=== PATIENT | female | born 1935 | race Caucasian/White ===

== ENCOUNTER → 2017-10-12 | Outpatient (CLI) | payer MEDICARE, OTHER ==
[~2017-10-12] MED LIST: ASPIRIN 81M81 MG/TA2 PO; BIOTIN5 MG PO; CLARITIN 1010 MG/TAB PO; COZAAR100 MG PO; CROLOM 10 ML10 ML OP; FLEXERIL5 MG PO; HCTZ12.5TAB PO; LASIX 40MG TABL40 MG PO; LIPITOR 10MG10 MG PO; LUTEIN20 MG PO; MULTIPLE VITAMI1 CAP PO; NORVASC 10MG10 MG PO; OSTEO-BI-FLEX 21 TAB PO; PAXIL 10MG10 MG PO; PERCOCET 325 MG1 TA2 PO; PHENTERMINE15 MG PO; PRINIVIL40 MG PO; VITAMIN C500 MG PO; ZANTAC 150MG T150 MG PO; ZOFRAN ODT8 MG PO
== END ==
LOC: MC.RAD 14:36
DX: Z12.31 Encounter for screening mammogram for malignant neoplasm of breast (principal)

== ENCOUNTER → 2018-11-09 | Outpatient (CLI) | payer MEDICARE, OTHER | LOC: MC.RAD 15:09 | DX: Z12.31 Encounter for screening mammogram for malignant neoplasm of breast (principal) ==

== ENCOUNTER → 2019-12-06 | Outpatient (CLI) | payer MEDICARE, OTHER | LOC: MC.RAD 13:41 | DX: Z12.31 Encounter for screening mammogram for malignant neoplasm of breast (principal) ==

== ENCOUNTER → 2020-01-29 | Outpatient (CLI) | payer MEDICARE, OTHER ==
[~2020-01-29] VITALS: Ht 157.5 cm; Wt 87.9 kg
[2020-01-29 12:00] VITALS: BP 156/76; PULSE 55
--- NOTE | 2020-01-29 13:21 | NUR ---
procedure cancelled per dr edward
== END ==
LOC: COL.RAD 11:43
DX: R19.00 Intra-abdominal and pelvic swelling, mass and lump, unspecified site (principal)

== ENCOUNTER → 2020-01-31 | Outpatient (CLI) | payer MEDICARE, OTHER ==
[~2020-01-31] MED LIST changes: -BIOTIN5 MG PO; +LUTEIN20 M1 PO; -LUTEIN20 MG PO; +MERIBIN5 MG PO
== END ==
LOC: COL.RAD 10:21
DX: C48.1 Malignant neoplasm of specified parts of peritoneum (principal); N83.9 Noninflammatory disorder of ovary, fallopian tube and broad ligament, unspecified; R91.8 Other nonspecific abnormal finding of lung field
CPT/HCPCS: Q9967

== ENCOUNTER → 2020-02-07 | Outpatient (CLI) | payer MEDICARE, OTHER ==
[~2020-02-07] VITALS: Ht 157.5 cm; Wt 87.7 kg
[2020-02-07 09:53] VITALS: BP 140/69; PULSE 49
[2020-02-07 10:35] VITALS: BP 155/67; PULSE 55
--- NOTE | 2020-02-07 10:50 | NUR ---
PT TAKEN TO FRONT LOBBY AMBULATORY. WAITING FOR FRIEND TO ARRIVE
== END ==
LOC: COL.RAD 09:36
DX: R19.00 Intra-abdominal and pelvic swelling, mass and lump, unspecified site (principal); R22.9 Localized swelling, mass and lump, unspecified

== ENCOUNTER → 2020-08-25 | Outpatient (CLI) | payer MEDICARE, OTHER ==
[2020-08-25 09:36] LABS: HEMOGLOBIN 10.7 g/dl (12.5-16.0); MEAN CELL VOLUME 94 fl (80.0-100.0); MEAN CORPUSCULAR HEMOGLOBIN 30 pg (27.0-31.0); MEAN CORPUSCULAR HGB CONC 32 g/dl (33.0-37.0); MEAN PLATELET VOLUME 11.6 fl (7.4-10.4); PLATELET COUNT 386 K/mm3 (130-400); RED BLOOD COUNT 3.54 M/mm3 (4.10-5.30); REDCELL DISTRIBUTION WIDTH-CV 14.7 % (11.5-14.5)
[2020-08-25 09:37] LABS: HEMATOCRIT 33.1 % (37.0-47.0)
[2020-08-25 09:49] LABS: CALCIUM 9.4 mg/dL (8.4-10.2); CREATININE, serum 0.62 (0.52-1.25)
== END ==
LOC: COL.LAB
PROVIDERS: Internal Medicine Interventional Cardiology
DX: Z01.812 Encounter for preprocedural laboratory examination (principal); R60.0 Localized edema

== ENCOUNTER 2020-08-28 12:19 | Emergency (ER) | payer MEDICARE, OTHER ==
[~2020-08-28] VITALS: Ht 157.5 cm; Wt 82.3 kg
[2020-08-28 12:25] VITALS: TEMP 98.5
[2020-08-28 12:53] LABS: BASO # 0.1 (0.0-0.2); EOS # 0.3 (0.0-0.7); EOS % 3.6 % (0-4.0); GRAN # 2.7 (1.4-6.5); GRAN % 39.7 % (42.2-75.2); LYMPH # 3.1 (1.2-3.4); LYMPH % 44.8 % (20.0-51.0); MEAN CELL VOLUME 93 fl (80.0-100.0); MEAN CORPUSCULAR HGB CONC 32 g/dl (33.0-37.0); MEAN PLATELET VOLUME 10.9 fl (7.4-10.4); MONO # 0.7 (0.1-0.6); MONO % 10.6 % (1.7-9.3); PLATELET COUNT 379 K/mm3 (130-400); REDCELL DISTRIBUTION WIDTH-CV 14.5 % (11.5-14.5)
[2020-08-28 12:58] LABS: HEMATOCRIT 30.6 % (37.0-47.0); HEMOGLOBIN 9.8 g/dl (12.5-16.0); MEAN CORPUSCULAR HEMOGLOBIN 30 pg (27.0-31.0)
[2020-08-28 13:01] LABS: INR 1.1 (0.8-3.0); PROTHROMBIN TIME 12.2 SECONDS (9.7-12.8)
[2020-08-28 13:21] LABS: ALBUMIN 3.1 gm/dL (3.5-5.0); BILIRUBIN,TOTAL 0.3 mg/dL (0.0-1.0); CALCIUM 9.2 mg/dL (8.4-10.2); CREATININE, serum 0.64 (0.52-1.25); TOTAL PROTEIN 5.8 gm/dL (6.4-8.2)
[2020-08-28 13:55] VITALS: BP 149/64; PULSE 66
== END 2020-08-28 14:02 | disposition home or self-care (01) ==
LOC: COL.ER 12:19
PROVIDERS: Family Medicine
DX: T82.838A Hemorrhage due to vascular prosthetic devices, implants and grafts, initial encounter (principal); Z88.0 Allergy status to penicillin; Z88.8 Allergy status to other drugs, medicaments and biological substances; Z79.82 Long term (current) use of aspirin

== ENCOUNTER → 2020-09-23 | Outpatient (CLI) | payer MEDICARE, OTHER | LOC: COL.RAD 08:09 | DX: K76.89 Other specified diseases of liver (principal); R59.0 Localized enlarged lymph nodes; Z90.49 Acquired absence of other specified parts of digestive tract; Z90.710 Acquired absence of both cervix and uterus; Z95.820 Peripheral vascular angioplasty status with implants and grafts | CPT/HCPCS: Q9967 ==

== ENCOUNTER 2021-01-23 23:43 | Observation (INO) | payer MEDICARE, OTHER ==
[~2021-01-23] VITALS: Ht 157.5 cm; Wt 76.4 kg
[2021-01-23 23:59] LABS: BASO # 0.1 (0.0-0.2); BASO % 0.6 % (0.0-2.0); EOS # 0.3 (0.0-0.7); EOS % 2.1 % (0-4.0); GRAN # 8.2 (1.4-6.5); GRAN % 59.8 % (42.2-75.2); HEMATOCRIT 41.4 % (37.0-47.0); HEMOGLOBIN 14.1 g/dl (12.5-16.0); LYMPH % 29.4 % (20.0-51.0); MEAN CELL VOLUME 85 fl (80.0-100.0); MEAN CORPUSCULAR HEMOGLOBIN 29 pg (27.0-31.0); MEAN CORPUSCULAR HGB CONC 34 g/dl (33.0-37.0); MONO # 1.1 (0.1-0.6); MONO % 7.9 % (1.7-9.3); PLATELET COUNT 349 K/mm3 (130-400); RED BLOOD COUNT 4.89 M/mm3 (4.10-5.30)
[2021-01-24 00:08] LABS: INR 1.2 (0.8-3.0); PROTHROMBIN TIME 12.9 SECONDS (9.7-12.8)
[2021-01-24 00:16] LABS: ALBUMIN 3.8 gm/dL (3.5-5.0); BILIRUBIN,TOTAL 0.4 mg/dL (0.0-1.0); CALCIUM 9.9 mg/dL (8.4-10.2); CREATININE, serum 0.82 (0.52-1.25); POTASSIUM 3.7 mmol/L (3.4-5.0)
[2021-01-24 00:18] LABS: C-REACTIVE PROTEIN 0.5 mg/dL (0.0-0.9)
[2021-01-24 01:07] LABS: COLLECTION METHOD CLEAN CATCH
[2021-01-24 01:16] LABS: PH 8 (5-8); SQUAMOUS EPITHELIAL None Seen /hpf; URINE APPEARANCE Cloudy; URINE BACTERIA None Seen /hpf; URINE BILIRUBIN Negative (NEGATIVE); URINE BLOOD Negative (NEGATIVE); URINE COLOR Yellow; URINE GLUCOSE Negative (NEGATIVE); URINE KETONE Negative (NEGATIVE); URINE LEUKOCYTE ESTERASE Negative (NEGATIVE); URINE NITRATE Negative (NEGATIVE); URINE PROTEIN(semi-quant) Negative (NEGATIVE); URINE UROBILINOGEN Negative (NEGATIVE)
[2021-01-24] MEDS ORDERED: CENTRUM1 TA1 PO (02:02)
[2021-01-24] MEDS ORDERED: COLACE 100100 MG/CAP PO (02:03)
[2021-01-24] MEDS ORDERED: DICLOFENAC SOD2.5 ML TOP (02:04)
[2021-01-24] MEDS ORDERED: LOVENOX 4040 MG/0.4 SQ (02:04)
[2021-01-24] MEDS ORDERED: FEMARA PO (02:05)
[2021-01-24] MEDS ORDERED: FLONASEALLERGY NS (02:05)
[2021-01-24] MEDS ORDERED: ZYVOX 600MG600 MG PO (02:06)
[2021-01-24] MEDS ORDERED: LASIX 80MG TABL80 MG PO (02:06)
[2021-01-24] MEDS ORDERED: LASIX 40MG TABL40 MG PO (02:06)
[2021-01-24] MEDS ORDERED: MEGACE ORAL40 MG/ML PO (02:07)
[2021-01-24] MEDS ORDERED: MELATONIN5 M1 SL (02:07)
[2021-01-24] MEDS ORDERED: KAPSPARGO SPRIN25 MG PO (02:08)
[2021-01-24] MEDS ORDERED: METROGEL-VAGINA0.75% VG (02:08)
[2021-01-24] MEDS ORDERED: MIRALAX PA17 GM/Dose PO (02:09)
[2021-01-24] MEDS ORDERED: OCUVITE1 TA1 PO (02:09)
--- NOTE | 2021-01-24 02:57 | NUR ---
Pt currently resting in bed. Pt was transported to the unit via wheelchair. Pt transferred from wheelchair to bed well. Pt stated that she has little pain at this time. Pt has no other concerns at this time. Pt is resting in bed and has her call light within reach.
[2021-01-24 03:45] VITALS: BP 149/68; PULSE 61; TEMP 97.8
--- NOTE | 2021-01-24 03:59 | NUR ---
Pt currently sleeping in bed. Pt has her call light within reach and her bed is in lowest position.
[2021-01-24 07:24] VITALS: BP 153/60; PULSE 67; TEMP 98.4
--- NOTE | 2021-01-24 08:00 | NUR ---
PATIENT ALERT AND ORIENTED. VITAL SIGNS STABLE. DENIES PAIN AND NAUSEA AT THIS TIME. PATIENT ADMITTED WITH ABDOMINAL PAIN AND SMALL BOWEL OBSTRUCTION. NPO DIET. BOWEL SOUNDS ACTIVE X4 QUADRANTS. COLOSTOMY BAG PRODUCING MODERATE AMOUNT OF STOOL AND GAS. ALL OTHER ASSESSMENTS WITHIN NORMAL LIMITS. NORMAL SALINE RUNNING AT 125 ML/HR IN LEFT AC. PATIENT LEFT RESTING IN BED. CALL LIGHT WITHIN REACH.
--- NOTE | 2021-01-24 08:00 | NUR ---
AGREE WITH STUDENT ASSESSMENT, SEE CHARTING
[2021-01-24 09:11] LABS: BASO # 0.1 (0.0-0.2); BASO % 0.5 % (0.0-2.0); EOS % 0.2 % (0-4.0); GRAN # 7.2 (1.4-6.5); HEMATOCRIT 39.7 % (37.0-47.0); HEMOGLOBIN 13.1 g/dl (12.5-16.0); LYMPH # 1.9 (1.2-3.4); LYMPH % 19.5 % (20.0-51.0); MEAN CELL VOLUME 87 fl (80.0-100.0); MEAN CORPUSCULAR HEMOGLOBIN 29 pg (27.0-31.0); MEAN CORPUSCULAR HGB CONC 33 g/dl (33.0-37.0); MEAN PLATELET VOLUME 11.4 fl (7.4-10.4); MONO # 0.7 (0.1-0.6); MONO % 6.6 % (1.7-9.3); PLATELET COUNT 329 K/mm3 (130-400); RED BLOOD COUNT 4.56 M/mm3 (4.10-5.30); REDCELL DISTRIBUTION WIDTH-CV 16.3 % (11.5-14.5)
--- NOTE | 2021-01-24 09:41 | NUR ---
SW met with patient to conduct intake evaluation. Patient lives at home alone in [place]. Patient reports DPOA is daughter Michelle Richards (P# [phone]). Patient was advised to contact [facility] to have a copy of paperwork faxed or mailed to hospital. Patient's PCP is Dr. Lundberg and she uses [facility] as well as [facility] for medications. Patient denies needing assistance with ADLs and uses no DMEs. Patient denies needing assistance affording medications. Patient plans to return home with friend Neo Pisano providing transportation. Patient denies questions or concerns at this time. SW will continue to follow.
--- NOTE | 2021-01-24 10:50 | NUR ---
DR.SAVILLE SANCHEZ, SEE ORDERS.
[2021-01-24 11:18] VITALS: BP 150/53; PULSE 75; TEMP 98
--- NOTE | 2021-01-24 12:00 | NUR ---
PATIENT'S DIET ADVANCED. TOLERATING FULL LIQUIDS WELL. NO C/O N/V.
--- NOTE | 2021-01-24 12:03 | NUR ---
Structural Worker offered prayer and support with patient.
[2021-01-24 15:42] VITALS: BP 135/49; PULSE 67; TEMP 98.1
[2021-01-24 20:08] VITALS: BP 154/58; PULSE 66; TEMP 98.5
[2021-01-24 23:54] VITALS: BP 142/58; PULSE 67; TEMP 98.3
[2021-01-25 04:23] VITALS: BP 140/59; PULSE 72; TEMP 98
--- NOTE | 2021-01-25 05:20 | NUR ---
RESTING QUIETLY/SLEEPING. NO c/o PAIN. NO c/o N/V. ACTIVE BOWEL TONES. PT HAD ONLY A SCANT AMOUNT OF OUTPUT IN COLOSTOMY BAG.
[2021-01-25 06:00] LABS: BASO # 0.1 (0.0-0.2); BASO % 0.7 % (0.0-2.0); EOS # 0.4 (0.0-0.7); EOS % 4.9 % (0-4.0); GRAN # 3.3 (1.4-6.5); GRAN % 42.4 % (42.2-75.2); HEMATOCRIT 37.9 % (37.0-47.0); HEMOGLOBIN 12.4 g/dl (12.5-16.0); LYMPH # 3.3 (1.2-3.4); LYMPH % 42.8 % (20.0-51.0); MEAN CELL VOLUME 90 fl (80.0-100.0); MEAN CORPUSCULAR HEMOGLOBIN 29 pg (27.0-31.0); MEAN CORPUSCULAR HGB CONC 33 g/dl (33.0-37.0); MEAN PLATELET VOLUME 11.4 fl (7.4-10.4); MONO # 0.7 (0.1-0.6); MONO % 9.1 % (1.7-9.3); PLATELET COUNT 293 K/mm3 (130-400); RED BLOOD COUNT 4.22 M/mm3 (4.10-5.30); REDCELL DISTRIBUTION WIDTH-CV 16.6 % (11.5-14.5)
--- NOTE | 2021-01-25 08:00 | NUR ---
PATIENT ALERT AND ORIENTED X3. NOTED THAT BP IS 174/72 OTHER VSS. NO COMPLAINTS OF PAIN OR N/V AT THIS TIME. NO MORNING MEDS TO GIVE AT THIS TIME BECAUSE HOME MEDS STILL HAVE NOT BEEN RESUMED SINCE THE PATIENT HAS BEEN ON BOWEL REST. HEAD TO TOE ASSESSMENT COMPLETED. LUNG SOUNDS CLEAR IN ALL LOBES. HEART IS REGULAR AND NORMAL. BOWEL SOUNDS ARE AUDIBLE IN ALL FOUR QUADRANTS. THE ABDOMEN IS LARGELY DISTENDED FROM A LARGE HERNIA. THERE IS A COLOSTOMY BAG THAT IS COLLECTING A SMALL AMONT OF DARK BROWN STOOL AND GAS. DOES NOT NEED TO BE EMPTIED OR CHANGED AT THIS TIME. THE PATIENT DENIES ANY PAIN OR TENDERNESS IN HER CALVES. THERE IS NO ABNORMAL WARMTH OR REDNESS IN THE CALVES. THERE IS +3 PITTING EDEMA BILATERALLY IN THE ANKLES. PULSES ARE READILY PALPABLE IN THE RADIAL LOCATIONS BUT FAINT IN THE LOWER EXTREMITIES. THE BED IS LEFT IN THE LOWEST POSITION AND CALL LIGHT IS LEFT WITHIN REACH.
--- NOTE | 2021-01-25 08:00 | NUR ---
AGREE WITH STONE STUDENT'S ASSESSMENT, SEE CHARTING
[2021-01-25 08:28] VITALS: BP 174/72; PULSE 57; TEMP 98.7
[2021-01-25 11:59] VITALS: BP 179/50; PULSE 59; TEMP 98.5
--- NOTE | 2021-01-25 14:53 | NUR ---
PATIENT DISCHARGING HOME VIA WC TO PERSONAL VEHICLE WHERE FRIEND IS WAITING. GAVE DISCHARGE INSTRUCTIONS AND DISCUSSED F/U APT. ANSWERED QUESTIONS/CONCERNS. MARYBETH BANDA DC'[facility] IV SITE. PATIENT DISCHARGED.
== END 2021-01-25 15:00 | disposition home or self-care (01) ==
LOC: COL.ER 23:43 → SURG 01-24 01:53
PROVIDERS: Emergency Medicine; Surgery; ADMIT Surgery
DX: K56.609 Unspecified intestinal obstruction, unspecified as to partial versus complete obstruction (principal); C56.9 Malignant neoplasm of unspecified ovary; I10 Essential (primary) hypertension; E78.5 Hyperlipidemia, unspecified; I73.9 Peripheral vascular disease, unspecified; Z86.16 Personal history of COVID-19; Z93.3 Colostomy status; Z79.899 Other long term (current) drug therapy; Z79.811 Long term (current) use of aromatase inhibitors; Z95.828 Presence of other vascular implants and grafts; Z79.82 Long term (current) use of aspirin
CPT/HCPCS: G0378; J2270; J2405; J7030; Q9967

== ENCOUNTER 2021-08-14 02:56 | Observation (INO) | payer MEDICARE, OTHER ==
[~2021-08-14] VITALS: Wt 83.0 kg
[~2021-08-14 02:56] MED LIST changes: +CENTRUM1 TA1 PO; +COLACE 100100 MG/CAP PO; +DICLOFENAC SOD2.5 ML TOP; +FEMARA PO; +FLONASEALLERGY NS; +KAPSPARGO SPRIN25 MG PO; +LASIX 80MG TABL80 MG PO; +LOVENOX 4040 MG/0.4 SQ; +MEGACE ORAL40 MG/ML PO; +MELATONIN5 M1 SL; +METROGEL-VAGINA0.75% VG; +MIRALAX PA17 GM/Dose PO; +OCUVITE1 TA1 PO; +ZYVOX 600MG600 MG PO
[2021-08-14 03:11] LABS: BASO # 0.1 K/mm3 (0.0-0.2); BASO % 0.7 % (0.0-2.0); EOS # 0.4 K/mm3 (0.0-0.7); EOS % 3.4 % (0-4.0); GRAN # 6.8 K/mm3 (1.4-6.5); GRAN % 54.4 % (42.2-75.2); HEMATOCRIT 41.6 % (37.0-47.0); HEMOGLOBIN 14.3 g/dl (12.5-16.0); LYMPH # 3.8 K/mm3 (1.2-3.4); LYMPH % 30.5 % (20.0-51.0); MEAN CELL VOLUME 86 fl (80.0-100.0); MEAN CORPUSCULAR HEMOGLOBIN 30 pg (27.0-31.0); MEAN CORPUSCULAR HGB CONC 34 g/dl (33.0-37.0); MEAN PLATELET VOLUME 10.2 fl (7.4-10.4); MONO # 1.4 K/mm3 (0.1-0.6); MONO % 10.8 % (1.7-9.3); PLATELET COUNT 383 K/mm3 (130-400); RED BLOOD COUNT 4.82 M/mm3 (4.10-5.30)
[2021-08-14 03:21] LABS: INR 1.2 (0.8-3.0); PROTHROMBIN TIME 13.5 SECONDS (9.7-12.8)
[2021-08-14 03:28] LABS: ALBUMIN 3.2 gm/dL (3.4-4.8); BILIRUBIN,TOTAL 0.6 mg/dL (0.2-1.2); CALCIUM 10.3 mg/dL (8.4-10.2); CREATININE, serum 0.78 mg/dL (0.57-1.11); POTASSIUM 3.7 mmol/L (3.5-4.5); TOTAL PROTEIN 6.7 gm/dL (6.2-8.1)
[2021-08-14 03:33] LABS: TROPONIN-I 0.013 ng/mL (0.00-0.033)
[2021-08-14 08:27] VITALS: BP 171/58; PULSE 60; TEMP 98.5
--- NOTE | 2021-08-14 08:45 | NUR ---
PATIENT ADMITED FROM ER WITH ABD PAIN AND POSSIBLE SBO. PATIENT HAS HX OF COLOSTOMY X1 YEAR. NOTED DARK GREEN STOOL IN OSTOMY BAG, NO FLATUS. DENIES N/V AT THIS TIME. NPO. IV FLUIDS INFUSING INTO LEFT AC IV VIA PUMP. HEAD TO TOE ASSESSMENT COMPLETE. INDEPENDENT IN ROOM. ORIENTED TO ROOM. CALL LIGHT IN REACH.
[2021-08-14] MEDS ORDERED: LASIX 40MG TABL40 MG PO (08:47)
[2021-08-14] MEDS ORDERED: MIRALAX PA17 GM/Dose PO (08:48)
[2021-08-14] MEDS ORDERED: MELATONIN3 M1 PO (08:49)
[2021-08-14] MEDS ORDERED: FEMARA PO (08:50)
[2021-08-14] MEDS ORDERED: ELIQUIS 5MG PO (08:50)
[2021-08-14] MEDS ORDERED: PAXIL 10MG10 MG PO (08:51)
--- NOTE | 2021-08-14 11:27 | NUR ---
spice room worker met with patient to discuss discharge plan. 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 Patient reports to being fully independent with her ADL's and does not utilize any DME to assist with mobility. Is not on oxygen and does not use a CPAP. She does have a colostomy which she receives her supplies through [facility] and reports that [facility] pays for everything. PCP is Dr. Lundberg and she utilizes [facility] for medications. Reports that she does have a DPOA established and that her daughter Michelle ([phone]) is her agent. Patient is planning on returning home and has no concerns. Discharge plan: Home
[2021-08-14 12:00] VITALS: BP 165/57; PULSE 66; TEMP 99.9
[2021-08-14 16:00] VITALS: BP 154/50; PULSE 67; TEMP 99
[2021-08-14 20:01] VITALS: BP 166/61; PULSE 72; TEMP 98
[2021-08-14 23:36] VITALS: BP 168/67; PULSE 79; TEMP 98.5
[2021-08-15 03:26] VITALS: BP 165/62; PULSE 80; TEMP 97.9
--- NOTE | 2021-08-15 05:18 | NUR ---
PT NPO EXCEPT FOR ICE CHIPS, IVF INFUSING PER PIV @125CC/HR, NO C/O PAIN THIS SHIFT, NAUSEA REPORTED X1, ZOFRAN GIVEN WITH GOOD RELIEF, COLOSTOMY BAG WITH STOOL AND GAS PRESENT. PT UP INDEPENTLY IN ROOM.
[2021-08-15 07:59] LABS: BASO % 0.4 % (0.0-2.0); EOS % 0.4 % (0-4.0); HEMATOCRIT 39.6 % (37.0-47.0); LYMPH # 2.9 K/mm3 (1.2-3.4); LYMPH % 26.2 % (20.0-51.0); MEAN CORPUSCULAR HEMOGLOBIN 30 pg (27.0-31.0); MEAN CORPUSCULAR HGB CONC 33 g/dl (33.0-37.0); MEAN PLATELET VOLUME 11.3 fl (7.4-10.4); MONO % 8.8 % (1.7-9.3); PLATELET COUNT 352 K/mm3 (130-400); RED BLOOD COUNT 4.37 M/mm3 (4.10-5.30); REDCELL DISTRIBUTION WIDTH-CV 14.4 % (11.5-14.5)
[2021-08-15 08:00] VITALS: BP 140/66; PULSE 65; TEMP 99.1
[2021-08-15 08:06] LABS: MEAN CELL VOLUME 91 fl (80.0-100.0)
[2021-08-15 08:24] LABS: CALCIUM 8.7 mg/dL (8.4-10.2); CREATININE, serum 0.64 mg/dL (0.57-1.11); POTASSIUM 3.6 mmol/L (3.5-4.5)
--- NOTE | 2021-08-15 09:50 | NUR ---
Patient resting in bed. Minimal needs. She is caring for her own ostomy & reports output. Ivf per orders. Will monitor.
[2021-08-15 11:13] VITALS: BP 174/55; PULSE 61; TEMP 98.3
--- NOTE | 2021-08-15 13:42 | NUR ---
Low fiber lunch ordered. Patient continues to deny pain & nausea. She is hopeful for discharge home
--- NOTE | 2021-08-15 15:46 | NUR ---
Patient tolerated her low fiber lunch.
--- NOTE | 2021-08-15 16:50 | NUR ---
Patient ready for discharge. called & orders obtained. Discharge paperwork reviewed and patients friend here to take her home. all discharge orders obtained. Patient wheeled out with all belongings & she denies questions and concerns.
== END 2021-08-15 16:30 | disposition home or self-care (01) ==
LOC: COL.ER 02:56 → SURG 05:45
PROVIDERS: Emergency Medicine; ADMIT Surgery
DX: K56.600 Partial intestinal obstruction, unspecified as to cause (principal); I10 Essential (primary) hypertension; K43.5 Parastomal hernia without obstruction or gangrene; E78.5 Hyperlipidemia, unspecified; Z93.3 Colostomy status; Z85.43 Personal history of malignant neoplasm of ovary; Z86.16 Personal history of COVID-19; Z79.899 Other long term (current) drug therapy; Z79.01 Long term (current) use of anticoagulants; Z95.828 Presence of other vascular implants and grafts
CPT/HCPCS: J2270; J2405; J7030; Q9967